=== PATIENT | female | born 2000 | race Caucasian/White ===

== ENCOUNTER 2022-10-02 01:54 | Emergency (ER) | payer BC, SELFPAY ==
[2022-10-02 01:56] VITALS: BP 125/93; PULSE 75; RESP 17; TEMP 36.2; O2SAT 99
--- NOTE | 2022-10-02 03:33 | PC.NURSE ---
Patient leaving at this time. patient ambulatory with steady gait. alert and oriented x4.
== END 2022-10-02 04:26 | disposition left against medical advice (07) ==
LOC: ANHED 03:44
PROVIDERS: PCP Family Medicine
DX: R11.0 Nausea (principal)
CPT/HCPCS: 99199